=== PATIENT | male | born 2000 | race Caucasian/White ===

== ENCOUNTER 2020-12-07 12:58 | Emergency (ER) | payer SELFPAY ==
[~2020-12-07] VITALS: Ht 180.3 cm; Wt 72.7 kg
[2020-12-07 15:10] VITALS: BP 121/78
== END 2020-12-07 14:44 | disposition home or self-care (01) ==
LOC: EMS 13:00
DX: S62.393A Other fracture of third metacarpal bone, left hand, initial encounter for closed fracture (principal); X58.XXXA Exposure to other specified factors, initial encounter; Y93.89 Activity, other specified; Y92.89 Other specified places as the place of occurrence of the external cause; Y99.9 Unspecified external cause status
CPT/HCPCS: 99283